=== PATIENT | female | born 1970 | race Two or more races ===

== ENCOUNTER 2017-12-23 06:23 | Inpatient (IN) | END 2017-12-28 16:06 | disposition home or self-care (01) | DRG 286 ==

== ENCOUNTER 2018-10-01 19:12 | Emergency (ER) | payer OTHER ==
[~2018-10-01] VITALS: Ht 152.4 cm; Wt 70.5 kg
[~2018-10-01 19:12] MED LIST: ASPI-831 PO; BEN25 PO; CEPH-443 PO; DIGO125T PO; FURO-110 PO; HC30CR25 TOP; LOSA25TA2 PO; PRED20TA PO; WORK NOTE
[2018-10-01 19:19] VITALS: BP 130/67; PULSE 85; RESP 20; Ht 152.4 cm; Wt 70.5 kg
--- NOTE | 2018-10-01 19:38 | ERD ---
ER Documentation Chief Complaint Chief Complaint Pt reports itchy bites on BE x 3 weeks HPI 48-year-old female, presents to the emergency department, complaining of multiple insect bites on bilateral lower extremities for 3 weeks. She denies fever, no chills, no rashes. ROS All systems reviewed and are negative except as per history of present illness. Medications Home Meds Active Scripts Hydrocortisone* Topical (Hydrocortisone* Topical) 2.5%-28.3 Gm Cream..g., 1 APPLIC TOP BID for 7 Days, #1 TUB Prov:CHAR ROACH MD 10/01/18 Diphenhydramine Hcl* (Benadryl*) 25 Mg Cap, 25 MG PO Q6 PRN for ITCHING/RASH, #30 TAB Prov:CHAR ROACH MD 10/01/18 Prednisone* (Prednisone*) 20 Mg Tab, 40 MG PO DAILY for 5 Days, TAB Prov:CHAR ROACH MD 10/01/18 Cephalexin* (Keflex*) 500 Mg Capsule, 500 MG PO BID for 5 Days, CAP Prov:CHAR ROACH MD 10/01/18 Furosemide* (Lasix*) 20 Mg Tablet, 20 MG PO DAILY PRN for SWELLING/BREATHING DIFFICULTY, #30 TAB Prov:CATHY LAMBERT NP 12/28/17 [Work Note] No Conflict Check Please excuse Ms.Marine Bobo attending work from 12/22/2017 to 01/03/2018 due to her medical condition. Thank you Prov:CATHY LAMBERT NP 12/28/17 Aspirin (Aspirin) 81 Mg Chew, 81 MG PO DAILY, #30 TAB Prov:CATHY LAMBERT NP 12/28/17 Digoxin* (Digitek*) 125 Mcg Tablet, 0.125 MG PO DAILY@13, #30 TAB Prov:CATHY LAMBRET NP 12/28/17 Losartan Potassium* (Cozaar*) 25 Mg Tablet, 12.5 MG PO DAILY, #30 TAB Prov:CATHY LAMBERT NP 12/28/17 Allergies Allergies: Coded Allergies: No Known Drug Allergies (Verified Allergy, Unknown, 12/23/17) PMhx/Soc Medical and Surgical Hx: pt denies Medical Hx History of Surgery: No Anesthesia Reaction: No Hx Neurological Disorder: No Hx Respiratory Disorders: No Hx Cardiac Disorders: No Hx Psychiatric Problems: No Hx Miscellaneous Medical Probl: No Hx Alcohol Use: No Hx Substance Use: No Hx Tobacco Use: No FmHx Family History: No diabetes, No coronary disease Physical Exam Vitals Vital Signs Date Temp Pulse Resp B/P (MAP) Pulse Ox O2 O2 Flow FiO2 Time Delivery Rate 10/01/18 98.4 85 20 130/67 97 19:19 (88) Physical Exam Const: No acute distress Head: Atraumatic Eyes: Normal Conjunctiva ENT: Normal External Ears, Nose and Mouth. Neck: Full range of motion. No meningismus. Resp: Clear to auscultation bilaterally Cardio: Regular rate and rhythm, no murmurs Abd: Soft, non tender, non distended. Normal bowel sounds Skin: Multiple insect bites in different healing stages in bilateral lower extremity some of them with evidence of infection. No petechiae or rashes Back: No midline or flank tenderness Ext: No cyanosis, or edema Neur: Awake and alert Psych: Normal Mood and Affect Procedures/MDM Vital signs stable, Differential diagnosis include but not limited to: Dermatitis, scabies, allergic reaction, cellulitis, erysipelas, shingles, abscess. Low suspicion for acute systemic infectious process. Physical examination and clinical presentation consistent most likely with in sect bites with mild local infection. During the ED course the patient remained stable, no new complaints. Clinical impression discussed with mother who agrees with management. The patient is stable to be treated outpatient and will be discharged home. The patient was instructed to follow up with the primary care provider in the next 48h. If symptoms persist, worsen or new symptoms develop, then patient should return to the ED immediately. Instructions explained and given directly by me to the patient and relatives with acknowledgment and demonstrated understanding. Disclaimer: Inadvertent spelling and grammatical errors are likely due to EHR/dictation software use and do not reflect on the overall quality of patient care. Also, please note that the electronic time recorded on this note does not necessarily reflect the actual time of the patient encounter. Departure Diagnosis: Primary Impression: Infected insect bite Condition: Stable Additional Instructions: Thank you very much for allowing us to participate in your care. Your health and safety is our top priority at [facility]. The evaluation in the emergency department has been done to rule out an acute emergency. Chronic, [id number] conditions may have not been evaluated; therefore, you need to follow up with a primary care provider in the next 48h. If symptoms persist, worsen or new symptoms develop, then patient sh ould return to the ED immediately. Call your primary care doctor TOMORROW for an appointment during the next 2-4 days and bring all the information provided. Have prescriptions filled and follow precisely the directions on the label. If the symptoms get worse and your provider is unavailable, return to the Emergency Department immediately. CHAR ROACH MD Oct 01, 2018 19:38
== END 2018-10-01 19:43 | disposition home or self-care (01) ==
LOC: E/R 19:12
DX: S40.861A Insect bite (nonvenomous) of right upper arm, initial encounter (principal); S80.861A Insect bite (nonvenomous), right lower leg, initial encounter; S80.862A Insect bite (nonvenomous), left lower leg, initial encounter; W57.XXXA Bitten or stung by nonvenomous insect and other nonvenomous arthropods, initial encounter; Y92.9 Unspecified place or not applicable; Z79.82 Long term (current) use of aspirin
CPT/HCPCS: 99283